=== PATIENT | female | born 1995 | race Caucasian/White ===

== ENCOUNTER → 2016-08-14 | Outpatient (CLI) | payer MEDICAID ==
--- NOTE | 2016-08-14 16:24 | US ---
August 14, 2016 Dear [facility], Thank you for allowing us to see your patient regarding anatomy. As you know she is a 21 year-old gr avida 2, para 0. Her due date is 01/01/17 which is based on L/9. Her current gestational age based o n this dating is 20 weeks 0 days. She had normal NIPT. Number of fetuses: 1 Placental location: anterior/fundal Cord Insertion: Central presentation: vertex Cervix: 3.9 cm MVP: 5.7 cm The adnexa were evaluated. No pathology was seen. Right ovary seen Left ovary seen Measurements: Biparietal diameter: 45 mm 19 weeks, 4 days Head circumference: 166 mm 19 weeks, 3 days Abdominal circumference: 148 mm 20 weeks, 1 days Femur length: 29 mm 18 weeks, 6 days Humerus length: 30 mm 19 weeks, 5 days Transcerebellar diameter: 20 mm 19 weeks, 2 days Average ultrasound age: 19 weeks, 4 days Estimated weight: 294 gm weight percentile: 19 % ANATOMY Upper extremities: Normal Lower extremities: Normal Supratentorial brain: Normal Lateral ventricle: 6.0 mm Posterior fossa: Normal Cisterna Magna: 5.0 mm Spine: Normal Nuchal fold: 4.0 Face: Normal nose, lip, profile, alveolar ridge Heart: Normal rate, rhythm, axis, 4 chamber view, LVOT, RVOT, IVS Stomach: Normal Diaphragm: Normal Umbilical cord insertion: Normal Right kidney: Normal Left kidney: Normal Bladder: Normal Number of cord vessels: Three. Impression: This is a 21 year-old 2, para 0 at 20 weeks, 0 days gestation. \\ 1. SIUP with biometry cw stated gestational age. Nl CAREN. No anatomic abnormalities noted. 2. I was happy to review these findings with your patient today. Thank you for allowing me to see your patient. NO E&M charged today. Desi Lynch MD Diagnosis Division of Maternal Medicine Department of Obstetrics and Gynecology [facility]
--- NOTE | 2016-08-14 17:42 | US ---
OB Sonogram History: Second trimester screen, BILLIE 01/01/2017, 20 weeks 0 days, check growth and anatomy Comparison: None Findings: There is a single viable intrauterine gestation in vertex presentation. The cervix is close d measuring 3.9 cm transabdominally. The placenta is anterior and fundal without previa. The lower ma rgin of the placenta is approximately 4.8 cm above the internal os. The umbilical cord inserts normal ly into the placenta. Maximum amniotic fluid pocket = 5.7 cm. Both maternal ovaries are visible and a ppear normal. The heart is 4 chambered and has a heart rate = 160 bpm. The interventricular septum and outflow tracts appear normal. The visualized intracranial contents, face and spine look normal. Fluid is identified in the stomach and urinary bladder. The renal cathy on looks normal. The umbilical cord has 3 vessels and a normal insertion site. 4 extremities ar e present. BPD = 45 mm = 19 weeks 4 days Head circumference = 1 66 mm = 19 weeks 3 days Abdominal circumference = 1 48 mm = 20 weeks 1 day Femur length = 29 mm = 18 weeks 6 days Humeral length = 30 mm = 19 weeks 5 days Cerebellar width = 20 mm = 19 weeks 2 days Cisterna magna = 5 mm Estimated weight = 294 g = 19 percentile Average gestational age by ultrasound = 19 weeks 4 days Ultrasound BILLIE January 04, 2017 Impression: Size consistent with dates. The visualized anatomy looks normal. This report should be read in conjunction with a consultation by Dr. Desi Lynch.
== END ==
LOC: FIMAGING 14:21
PROVIDERS: ATTEND Advanced Practice Midwife
DX: Z34.82 Encounter for supervision of other normal pregnancy, second trimester (principal); Z3A.20 20 weeks gestation of pregnancy

== ENCOUNTER → 2017-12-17 | Outpatient (CLI) | payer MEDICAID | LOC: FIMAGING 15:20 | PROVIDERS: ATTEND Registered Nurse | DX: O26.851 Spotting complicating pregnancy, first trimester (principal) | CPT/HCPCS: 84144-90 ==

== ENCOUNTER → 2018-07-31 | Outpatient (CLI) | payer MEDICAID | LOC: FIMAGING 10:41 | PROVIDERS: ATTEND Advanced Practice Midwife | DX: Z34.82 Encounter for supervision of other normal pregnancy, second trimester (principal); Z3A.22 22 weeks gestation of pregnancy ==

== ENCOUNTER → 2018-09-02 | Outpatient (CLI) | payer MEDICAID | LOC: FIMAGING 09:25 | PROVIDERS: ATTEND Advanced Practice Midwife | DX: Z34.02 Encounter for supervision of normal first pregnancy, second trimester (principal); Z3A.25 25 weeks gestation of pregnancy ==